=== PATIENT | female | born 1985 | race African-American/Black ===

== ENCOUNTER 2018-07-18 20:07 | Emergency (ER) | payer SELFPAY ==
[~2018-07-18] VITALS: Ht 167.6 cm; Wt 98.1 kg
[2018-07-18 20:23] VITALS: BP 155/88
[2018-07-18] MEDS ORDERED: TETRACAINE HCL 0.5% OPTH(EYE) SOLN 4ML RIGHTEYE ONE (21:45)
[2018-07-18] MEDS ORDERED: FLUORESCEIN SOD 1 MG TEST STRIP RIGHTEYE ONE (21:45)
== END 2018-07-18 22:12 | disposition home or self-care (01) ==
LOC: ER 20:07
DX: H10.31 Unspecified acute conjunctivitis, right eye (principal)